=== PATIENT | female | born 1985 | race Caucasian/White ===

== ENCOUNTER 2016-08-26 00:11 | Emergency (ER) | payer OTHER ==
[~2016-08-26] VITALS: Ht 157.5 cm; Wt 86.0 kg
[~2016-08-26 00:11] MED LIST: AMITRIPTYLINE H10 MG PO; AMOXICILLIN500 MG PO; AMOXICILLIN875 MG PO; ANTIVERT25 MG PO; ATARAX,VISTARIL25 MG PO; BACLOFEN10 MG PO; BENTYL20 MG PO; BUTALB-APAP-CA1 EACH PO; COMPAZINE10 MG PO; CYMBALTA; CYMBALTA60 MG PO; ENDOCET 5-3251 EACH PO; FLONASE16 G1 BOTH NARES; HYDROCODON-ACE1 EAC7 PO; HYDROCODONE-CH473 ML PO; IBUPROFEN200 M1 PO; KLONOPIN; KLONOPIN2 MG PO; LEVOFLOXACIN750 MG PO; METRONIDAZOLE500 MG PO; MUCUS ER600 MG PO; NAPROSYN500 MG PO; NORCO 5/3251 TABLET PO; ONDANSETRON HCL4 MG PO; OXYCONTIN10 MG PO; PERCOCET; PERCOCET 5/31 TABLET PO; PREDNISONE10 MG PO; PROZAC; PROZAC40 MG PO; REQUIP; REQUIP0.5 MG PO; ROBITUSSIN NIG118 ML PO; TEGRETOL-XR,CA100 MG PO; TESSALON PERLE100 MG PO; TYLENOL REGULA325 MG PO; VALIUM5 MG PO; ZOFRAN ODT4 MG PO; ZOFRAN ODT8 MG PO; ZOFRAN4 MG PO; ZYRTEC10 M2 PO
[2016-08-26] MEDS ORDERED: VIBRAMYCIN100 MG PO (03:33)
[2016-08-26 03:52] VITALS: BP 132/87
== END 2016-08-26 03:53 | disposition home or self-care (01) ==
LOC: EME 00:11 → EXP 00:11
PROC: 0H98XZZ Drainage of Buttock Skin, External Approach (ICD-10-PCS; principal; 2016-08-26)
DX: L02.31 Cutaneous abscess of buttock (principal); L03.317 Cellulitis of buttock; I10 Essential (primary) hypertension; F17.200 Nicotine dependence, unspecified, uncomplicated
CPT/HCPCS: 87205; 99281; 99283; J3010

== ENCOUNTER 2016-09-25 23:47 | Emergency (ER) | payer OTHER ==
[~2016-09-25] VITALS: Ht 157.5 cm; Wt 87.1 kg
[~2016-09-25 23:47] MED LIST changes: +VIBRAMYCIN100 MG PO
[2016-09-26] MEDS ORDERED: REGLAN10 MG PO (02:15)
[2016-09-26] MEDS ORDERED: FIORICET,ESG1 TABLET PO (02:15)
[2016-09-26 02:38] VITALS: BP 131/84
== END 2016-09-26 02:40 | disposition home or self-care (01) ==
LOC: EME 23:47 → EXP 23:47
DX: G43.909 Migraine, unspecified, not intractable, without status migrainosus (principal); F17.200 Nicotine dependence, unspecified, uncomplicated; Z88.6 Allergy status to analgesic agent
CPT/HCPCS: 99281; 99284; J0595; J1110; J8540

== ENCOUNTER 2016-09-30 15:39 | Emergency (ER) | payer OTHER ==
[~2016-09-30] VITALS: Ht 157.5 cm; Wt 82.7 kg
[~2016-09-30 15:39] MED LIST changes: +FIORICET,ESG1 TABLET PO; +REGLAN10 MG PO
[2016-09-30 16:44] LABS: MCH 29.1 PG (29.0-34.0); MCV 88.3 FL (83-99); MEAN PLAT.VOLUME 10.5 uM^3 (9.5-12.4); PLATELET COUNT 273 K/uL (156-360); RBC DIS.WIDTH-SD 42.3 % (39-53); RED BLOOD COUNT 5.32 M/uL (3.80-5.20); WHITE BLOOD COUNT 12.3 K/uL (4.1-10.2)
[2016-09-30 16:51] LABS: AMPHETAMINE NEGATIVE (500 ng/mL); BARBITURATES NEGATIVE (200 ng/mL); BENZODIAZEPINES NEGATIVE (150 ng/mL); COCAINE NEGATIVE (150 ng/mL); INTERNAL CONTROLS VALID? YES; METHADONE NEGATIVE (200 ng/mL); METHAMPHETAMINE NEGATIVE (500 ng/mL); OPIATES (MORPHINE) NEGATIVE (100 ng/mL); OXYCODONE NEGATIVE (100 ng/mL); PHENCYCLIDINE NEGATIVE (25 ng/mL); PROPOXYPHENE NEGATIVE (300 ng/mL); THC CANNABINOIDS NEGATIVE (50 ng/mL); TRICYCLIC ANTIDEPRESSANTS NEGATIVE (300 ng/mL)
[2016-09-30 16:52] LABS: CHLORIDE 106 mEq/L (99-109); POTASSIUM 3.9 mEq/L (3.7-5.4); SODIUM 140 mEq/L (136-147)
[2016-09-30 16:53] LABS: GLUCOSE 94 mg/dL (70-99)
[2016-09-30 16:55] LABS: ANION GAP 8 MEQ/L (2-14)
[2016-09-30 16:57] LABS: GFR ESTIMATE (CALCULATED) > 59 mL/min/; SERUM ETHYL ALCOHOL < 10 mg/dL
[2016-09-30 16:59] LABS: UREA NITROGEN (BUN) 12 mg/dL (9-23)
[2016-09-30 17:01] LABS: SALICYLATE < 5.0 MG/DL (15-30)
[2016-09-30 17:41] VITALS: BP 111/68
== END 2016-09-30 17:49 | disposition home or self-care (01) ==
LOC: EME 15:39
PROVIDERS: Emergency Medicine
DX: F39 Unspecified mood [affective] disorder (principal); M25.512 Pain in left shoulder; G89.29 Other chronic pain; F32.9 Major depressive disorder, single episode, unspecified; M79.7 Fibromyalgia; G43.909 Migraine, unspecified, not intractable, without status migrainosus; F17.200 Nicotine dependence, unspecified, uncomplicated
CPT/HCPCS: 71010; 73030; 80048; 85027; 90837; 99281; 99285; G0480

== ENCOUNTER 2016-10-10 04:05 | Emergency (ER) | payer OTHER ==
[~2016-10-10] VITALS: Ht 157.5 cm; Wt 86.3 kg
[2016-10-10 04:07] VITALS: BP 125/88
== END 2016-10-10 04:58 | disposition left against medical advice (07) ==
LOC: EME 04:05
DX: M79.605 Pain in left leg (principal); Z53.21 Procedure and treatment not carried out due to patient leaving prior to being seen by health care provider

== ENCOUNTER 2016-10-28 16:21 | Emergency (ER) | payer OTHER ==
[~2016-10-28] VITALS: Ht 157.5 cm; Wt 85.3 kg
[2016-10-28] MEDS ORDERED: MECLIZINE HCL25 MG PO (18:28)
[2016-10-28] MEDS ORDERED: SUDAFED 12-HOU120 MG PO (18:28)
[2016-10-28 18:49] VITALS: BP 111/65
== END 2016-10-28 18:49 | disposition home or self-care (01) ==
LOC: EME 16:21
DX: J01.90 Acute sinusitis, unspecified (principal); R42 Dizziness and giddiness; M79.7 Fibromyalgia; F17.200 Nicotine dependence, unspecified, uncomplicated
CPT/HCPCS: 99281; 99284

== ENCOUNTER 2016-12-06 02:03 | Emergency (ER) | payer OTHER ==
[~2016-12-06] VITALS: Ht 157.5 cm; Wt 86.9 kg
[~2016-12-06 02:03] MED LIST changes: +MECLIZINE HCL25 MG PO; +SUDAFED 12-HOU120 MG PO
[2016-12-06] MEDS ORDERED: PERCOCET 5/31 TABLET PO (02:15)
[2016-12-06 02:31] VITALS: BP 145/90
== END 2016-12-06 02:31 | disposition home or self-care (01) ==
LOC: EME 02:03
DX: M54.41 Lumbago with sciatica, right side (principal); F17.200 Nicotine dependence, unspecified, uncomplicated
CPT/HCPCS: 99281; 99283; J1100

== ENCOUNTER 2016-12-24 01:45 | Emergency (ER) | payer OTHER ==
[~2016-12-24] VITALS: Ht 157.5 cm; Wt 86.6 kg
[2016-12-24 02:11] VITALS: BP 118/94
[2016-12-24 02:43] LABS: HEMATOCRIT 43.7 % (36.0-46.0); MCH 29.1 PG (29.0-34.0); MCV 88.3 FL (83-99); MEAN PLAT.VOLUME 10.4 uM^3 (9.5-12.4); PLATELET COUNT 262 K/uL (156-360); RBC DIS.WIDTH-CV 12.6 % (11.8-14.6); RBC DIS.WIDTH-SD 40.6 % (39-53); RED BLOOD COUNT 4.95 M/uL (3.80-5.20); WHITE BLOOD COUNT 10.2 K/uL (4.1-10.2)
[2016-12-24 02:53] LABS: CHLORIDE 108 mEq/L (99-109); POTASSIUM 3.9 mEq/L (3.7-5.4); SODIUM 141 mEq/L (136-147)
[2016-12-24 02:55] LABS: GLUCOSE 101 mg/dL (70-99)
[2016-12-24 02:56] LABS: ANION GAP 10 MEQ/L (2-14)
[2016-12-24 02:57] LABS: TOTAL BILIRUBIN 0.2 mg/dL (0.0-1.0)
[2016-12-24 02:58] LABS: ALKALINE PHOSPHATASE 77 IU/L (3-129)
[2016-12-24 02:59] LABS: GFR ESTIMATE (CALCULATED) > 59 mL/min/
[2016-12-24 03:00] LABS: UREA NITROGEN (BUN) 11 mg/dL (9-23)
[2016-12-24 03:07] LABS: QUANTITATIVE HCG < 4.0 MIU/ML
== END 2016-12-24 04:40 | disposition left against medical advice (07) ==
LOC: EME 01:45
DX: R10.9 Unspecified abdominal pain (principal); R11.10 Vomiting, unspecified; Z53.21 Procedure and treatment not carried out due to patient leaving prior to being seen by health care provider
CPT/HCPCS: 80053; 81003; 84702; 85027

== ENCOUNTER 2017-01-21 05:49 | Emergency (ER) | payer OTHER ==
[~2017-01-21] VITALS: Ht 157.5 cm; Wt 88.0 kg
[2017-01-21 06:18] LABS: HEMATOCRIT 42.4 % (36.0-46.0); MCH 29.5 PG (29.0-34.0); MCHC 33.5 G/DL (30.0-36.0); MEAN PLAT.VOLUME 10.5 uM^3 (9.5-12.4); PLATELET COUNT 241 K/uL (156-360); RBC DIS.WIDTH-CV 12.7 % (11.8-14.6); RBC DIS.WIDTH-SD 41.1 % (39-53); RED BLOOD COUNT 4.82 M/uL (3.80-5.20); WHITE BLOOD COUNT 11.5 K/uL (4.1-10.2)
[2017-01-21 06:21] LABS: ADD MIUA? YES; BILIRUBIN NEGATIVE; BLOOD NEGATIVE; COLOR YELLOW ((YELLOW)); GLUCOSE (STRIP) NEGATIVE; KETONES NEGATIVE; LEUKOCYTES SMALL; NITRITE NEGATIVE; PROTEIN (STRIP) 30; UROBILINOGEN 0.2 MG/DL (0.2-1.0)
[2017-01-21 06:29] LABS: CHLORIDE 104 mEq/L (99-109); POTASSIUM 3.9 mEq/L (3.7-5.4); SODIUM 139 mEq/L (136-147)
[2017-01-21 06:31] LABS: GLUCOSE 94 mg/dL (70-99)
[2017-01-21 06:33] LABS: ANION GAP 13 MEQ/L (2-14); TOTAL BILIRUBIN 0.3 mg/dL (0.0-1.0)
[2017-01-21 06:35] LABS: ALKALINE PHOSPHATASE 71 IU/L (3-129); GFR ESTIMATE (CALCULATED) > 59 mL/min/
[2017-01-21 06:36] LABS: UREA NITROGEN (BUN) 11 mg/dL (9-23)
[2017-01-21 06:42] LABS: EPITHELIAL CELLS 3+ /HPF; MUCUS 1+ /LPF; RED BLOOD CELLS NONE SEEN /HPF (0-5)
[2017-01-21 06:43] LABS: BACTERIA 3+ /HPF; CASTS NONE SEEN /LPF; CRYSTALS NONE SEEN
[2017-01-21 06:44] LABS: QUANTITATIVE HCG < 4.0 MIU/ML
[2017-01-21] MEDS ORDERED: ZOFRAN ODT4 MG PO (06:52)
[2017-01-21] MEDS ORDERED: CIPRO500 MG PO (06:52)
[2017-01-21 07:01] VITALS: BP 106/56
== END 2017-01-21 07:04 | disposition home or self-care (01) ==
LOC: EME 05:49
PROVIDERS: Nurse Practitioner Family
DX: N39.0 Urinary tract infection, site not specified (principal); R11.0 Nausea; M79.7 Fibromyalgia; F17.200 Nicotine dependence, unspecified, uncomplicated
CPT/HCPCS: 80053; 81003; 84702; 85027; 99281; 99283

== ENCOUNTER 2017-01-30 07:55 | Emergency (ER) | payer OTHER ==
[~2017-01-30] VITALS: Ht 157.5 cm; Wt 85.8 kg
[~2017-01-30 07:55] MED LIST changes: +CIPRO500 MG PO
[2017-01-30] MEDS ORDERED: FLEXERIL10 MG PO (08:59)
[2017-01-30] MEDS ORDERED: [UNRECOGNIZED DRUG - OTHER] TP (09:12)
[2017-01-30 09:48] VITALS: BP 124/92
== END 2017-01-30 09:59 | disposition home or self-care (01) ==
LOC: EME 07:55
DX: S13.4XXA Sprain of ligaments of cervical spine, initial encounter (principal); V40.5XXA Car driver injured in collision with pedestrian or animal in traffic accident, initial encounter; M79.7 Fibromyalgia; Z88.8 Allergy status to other drugs, medicaments and biological substances; F17.200 Nicotine dependence, unspecified, uncomplicated
CPT/HCPCS: 72040; 99281; 99284

== ENCOUNTER 2017-02-03 02:43 | Emergency (ER) | payer OTHER ==
[~2017-02-03] VITALS: Ht 157.5 cm; Wt 89.4 kg
[~2017-02-03 02:43] MED LIST changes: +FLEXERIL10 MG PO; +[UNRECOGNIZED DRUG - OTHER] TP
[2017-02-03] MEDS ORDERED: PREDNISONE20 MG PO (04:19)
[2017-02-03 05:40] VITALS: BP 117/60
== END 2017-02-03 05:41 | disposition home or self-care (01) ==
LOC: EME 02:43
DX: T78.40XA Allergy, unspecified, initial encounter (principal); M79.7 Fibromyalgia; F17.200 Nicotine dependence, unspecified, uncomplicated; Z88.8 Allergy status to other drugs, medicaments and biological substances
CPT/HCPCS: 94640; 99281; 99285; J1200; J2930; J7030; S0028

== ENCOUNTER 2017-02-28 11:49 | Emergency (ER) | payer OTHER ==
[~2017-02-28 11:49] MED LIST changes: +PREDNISONE20 MG PO
[2017-02-28] MEDS ORDERED: INDERAL40 MG PO (18:09)
[2017-02-28] MEDS ORDERED: KLONOPIN0.5 M1 PO (18:09)
[2017-02-28] MEDS ORDERED: LEXAPRO20 MG PO (18:09)
[2017-02-28] MEDS ORDERED: ZOFRAN ODT4 MG PO (20:38)
[2017-02-28] MEDS ORDERED: DILAUDID2 MG PO (20:38)
== END 2017-02-28 12:56 | disposition left against medical advice (07) ==
LOC: EME 11:49
DX: N63.0 Unspecified lump in unspecified breast (principal); Z98.890 Other specified postprocedural states; Z53.21 Procedure and treatment not carried out due to patient leaving prior to being seen by health care provider

== ENCOUNTER 2017-02-28 17:29 | Emergency (ER) | payer OTHER ==
[~2017-02-28] VITALS: Ht 157.5 cm; Wt 87.7 kg
[2017-02-28] MEDS ORDERED: LEXAPRO20 MG PO (18:09)
[2017-02-28] MEDS ORDERED: KLONOPIN0.5 M1 PO (18:09)
[2017-02-28] MEDS ORDERED: INDERAL40 MG PO (18:09)
[2017-02-28 18:24] LABS: HEMATOCRIT 39.8 % (36.0-46.0); MCH 29.5 PG (29.0-34.0); MCHC 33.7 G/DL (30.0-36.0); MCV 87.5 FL (83-99); MEAN PLAT.VOLUME 10.1 uM^3 (9.5-12.4); PLATELET COUNT 339 K/uL (156-360); RBC DIS.WIDTH-CV 12.7 % (11.8-14.6); RBC DIS.WIDTH-SD 40.2 % (39-53); RED BLOOD COUNT 4.55 M/uL (3.80-5.20); WHITE BLOOD COUNT 12.4 K/uL (4.1-10.2)
[2017-02-28 18:31] LABS: CHLORIDE 105 mEq/L (99-109); POTASSIUM 3.9 mEq/L (3.7-5.4); SODIUM 138 mEq/L (136-147)
[2017-02-28 18:33] LABS: GLUCOSE 93 mg/dL (70-99)
[2017-02-28 18:34] LABS: ANION GAP 9 MEQ/L (2-14)
[2017-02-28 18:37] LABS: GFR ESTIMATE (CALCULATED) > 59 mL/min/
[2017-02-28 18:38] LABS: UREA NITROGEN (BUN) 10 mg/dL (9-23)
[2017-02-28] MEDS ORDERED: DILAUDID2 MG PO (20:38)
[2017-02-28] MEDS ORDERED: ZOFRAN ODT4 MG PO (20:38)
[2017-02-28 20:48] VITALS: BP 138/83
== END 2017-02-28 19:48 | disposition home or self-care (01) ==
LOC: EME 17:29
PROVIDERS: Nurse Practitioner Family
DX: L76.32 Postprocedural hematoma of skin and subcutaneous tissue following other procedure (principal); N64.4 Mastodynia; N63.10 Unspecified lump in the right breast, unspecified quadrant; Z98.890 Other specified postprocedural states; F17.200 Nicotine dependence, unspecified, uncomplicated
CPT/HCPCS: 71260; 80048; 85027; 99281; 99285; J2405; J3010; J7030

== ENCOUNTER 2017-04-13 00:54 | Emergency (ER) | payer OTHER ==
[~2017-04-13] VITALS: Ht 157.5 cm; Wt 92.4 kg
[~2017-04-13 00:54] MED LIST changes: +DILAUDID2 MG PO; +INDERAL40 MG PO; +KLONOPIN0.5 M1 PO; +LEXAPRO20 MG PO
[2017-04-13] MEDS ORDERED: FLEXERIL10 MG PO (03:03)
[2017-04-13 03:28] VITALS: BP 129/84
== END 2017-04-13 03:28 | disposition home or self-care (01) ==
LOC: EME 00:54
DX: M54.32 Sciatica, left side (principal); Z88.5 Allergy status to narcotic agent; Z88.6 Allergy status to analgesic agent; Z88.8 Allergy status to other drugs, medicaments and biological substances
CPT/HCPCS: 99281; 99284

== ENCOUNTER 2017-05-21 20:33 | Emergency (ER) | payer OTHER ==
[~2017-05-21] VITALS: Ht 154.9 cm; Wt 88.6 kg
[2017-05-21 21:14] LABS: HEMOGLOBIN 14.9 G/DL (11.9-15.5); MCH 28.8 PG (29.0-34.0); MCHC 33.9 G/DL (30.0-36.0); MCV 84.9 FL (83-99); PLATELET COUNT 290 K/uL (156-360); RBC DIS.WIDTH-CV 12.4 % (11.8-14.6); RBC DIS.WIDTH-SD 38.4 % (39-53); RED BLOOD COUNT 5.18 M/uL (3.80-5.20); WHITE BLOOD COUNT 9.8 K/uL (4.1-10.2)
[2017-05-21 21:30] LABS: CHLORIDE 105 MEQ/L (99-109); POTASSIUM 3.4 MEQ/L (3.7-5.4); SODIUM 136 MEQ/L (136-147)
[2017-05-21 21:35] LABS: CREATININE 0.7 MG/DL (0.6-1.3); GFR ESTIMATE (CALCULATED) > 59 mL/min/; GLUCOSE 153 mg/dL (70-99); UREA NITROGEN (BUN) 14 mg/dL (9-23)
[2017-05-22 00:09] LABS: TROP-I INTERPRETATION NEGATIVE; TROPONIN-I < 0.01 ng/mL (0.0-0.30)
[2017-05-22 01:15] VITALS: BP 131/75
== END 2017-05-22 01:17 | disposition home or self-care (01) ==
LOC: EXP 20:33 → EME 20:33 → EXP 05-22 01:17
PROVIDERS: Nurse Practitioner Family
DX: R07.9 Chest pain, unspecified (principal); M79.7 Fibromyalgia; Z87.891 Personal history of nicotine dependence; Z88.5 Allergy status to narcotic agent; Z88.6 Allergy status to analgesic agent; Z88.8 Allergy status to other drugs, medicaments and biological substances
CPT/HCPCS: 71046; 71275; 80048; 84484; 85027; 87502; 93005; 99281; 99285; J7030

== ENCOUNTER 2017-05-25 13:09 | Emergency (ER) | payer OTHER ==
[~2017-05-25] VITALS: Ht 154.9 cm; Wt 87.2 kg
[2017-05-25 13:53] LABS: HEMATOCRIT 44.7 % (36.0-46.0); MCHC 33.6 G/DL (30.0-36.0); MCV 86.5 FL (83-99); PLATELET COUNT 278 K/uL (156-360); RBC DIS.WIDTH-CV 12.5 % (11.8-14.6); RBC DIS.WIDTH-SD 39.4 % (39-53); RED BLOOD COUNT 5.17 M/uL (3.80-5.20); WHITE BLOOD COUNT 8.6 K/uL (4.1-10.2)
[2017-05-25 14:13] LABS: CHLORIDE 106 MEQ/L (99-109); POTASSIUM 3.9 MEQ/L (3.7-5.4); SODIUM 138 MEQ/L (136-147)
[2017-05-25 14:20] LABS: CREATININE 0.6 MG/DL (0.6-1.3); GFR ESTIMATE (CALCULATED) > 59 mL/min/; GLUCOSE 101 mg/dL (70-99); TROP-I INTERPRETATION NEGATIVE; TROPONIN-I < 0.01 ng/mL (0.0-0.30); UREA NITROGEN (BUN) 13 mg/dL (9-23)
[2017-05-25 15:17] LABS: QUANTITATIVE HCG < 4.0 MIU/ML
[2017-05-25 15:58] LABS: APPEARANCE CLOUDY ((CLEAR)); BILIRUBIN NEGATIVE; BLOOD LARGE; COLOR YELLOW ((YELLOW)); GLUCOSE (STRIP) NEGATIVE; KETONES NEGATIVE; LEUKOCYTES TRACE; NITRITE NEGATIVE; PROTEIN (STRIP) 30; SPECIFIC GRAVITY 1.021 (1.000-1.030); UROBILINOGEN 0.2 MG/DL (0.2-1.0)
[2017-05-25 16:11] LABS: EPITHELIAL CELLS 2+ /HPF; RED BLOOD CELLS 40-50 /HPF (0-5)
[2017-05-25 16:12] LABS: BACTERIA 3+ /HPF; MUCUS RARE /LPF; UCUL ADDED? YES
[2017-05-25] MEDS ORDERED: VENTOLIN HFA18 GM IH (16:16)
[2017-05-25 16:23] VITALS: BP 101/65
== END 2017-05-25 16:24 | disposition home or self-care (01) ==
LOC: EME 13:09
PROVIDERS: Physician Assistant
DX: R06.02 Shortness of breath (principal); M79.7 Fibromyalgia; G43.909 Migraine, unspecified, not intractable, without status migrainosus; Z88.8 Allergy status to other drugs, medicaments and biological substances; Z88.5 Allergy status to narcotic agent; Z88.6 Allergy status to analgesic agent; F17.200 Nicotine dependence, unspecified, uncomplicated
CPT/HCPCS: 71046; 80048; 81003; 81025; 84484; 84702; 85027; 87086; 93005; 99281; 99284

== ENCOUNTER 2017-06-10 22:23 | Emergency (ER) | payer OTHER ==
[~2017-06-10] VITALS: Ht 157.5 cm; Wt 93.1 kg
[~2017-06-10 22:23] MED LIST changes: +VENTOLIN HFA18 GM IH
[2017-06-10 22:32] VITALS: BP 134/91
[2017-06-10 23:26] LABS: HEMOGLOBIN 14.9 G/DL (11.9-15.5); MCH 28.9 PG (29.0-34.0); MCHC 33.9 G/DL (30.0-36.0); MCV 85.4 FL (83-99); PLATELET COUNT 291 K/uL (156-360); RBC DIS.WIDTH-CV 12.5 % (11.8-14.6); RBC DIS.WIDTH-SD 38.5 % (39-53); RED BLOOD COUNT 5.15 M/uL (3.80-5.20); WHITE BLOOD COUNT 11.9 K/uL (4.1-10.2)
[2017-06-10 23:34] LABS: D-DIMER ELISA < 150.00 ng/mLDDU (<230)
[2017-06-10 23:38] LABS: CHLORIDE 101 mEq/L (99-109); POTASSIUM 3.3 mEq/L (3.7-5.4); SODIUM 140 mEq/L (136-147)
[2017-06-10 23:40] LABS: GLUCOSE 152 mg/dL (70-99)
[2017-06-10 23:44] LABS: CREATININE 0.8 mg/dL (0.6-1.3); GFR ESTIMATE (CALCULATED) > 59 mL/min/
[2017-06-10 23:45] LABS: UREA NITROGEN (BUN) 11 mg/dL (9-23)
[2017-06-10 23:48] LABS: TROP-I INTERPRETATION NEGATIVE; TROPONIN-I < 0.01 ng/mL (0.0-0.30)
== END 2017-06-11 02:21 | disposition left against medical advice (07) ==
LOC: EME 22:23
PROVIDERS: Emergency Medicine
DX: N64.4 Mastodynia (principal); Z53.21 Procedure and treatment not carried out due to patient leaving prior to being seen by health care provider
CPT/HCPCS: 71046; 80048; 84484; 85027; 85379; 93005

== ENCOUNTER 2017-06-25 22:53 | Emergency (ER) | payer OTHER ==
[~2017-06-25] VITALS: Ht 157.5 cm; Wt 94.6 kg
[2017-06-26 00:36] LABS: HEMATOCRIT 42.4 % (36.0-46.0); HEMOGLOBIN 14.6 G/DL (11.9-15.5); MCH 29.5 PG (29.0-34.0); MCHC 34.4 G/DL (30.0-36.0); MCV 85.7 FL (83-99); PLATELET COUNT 289 K/uL (156-360); RBC DIS.WIDTH-CV 12.9 % (11.8-14.6); RBC DIS.WIDTH-SD 39.8 % (39-53); RED BLOOD COUNT 4.95 M/uL (3.80-5.20); WHITE BLOOD COUNT 10.8 K/uL (4.1-10.2)
[2017-06-26 00:49] LABS: CHLORIDE 105 mEq/L (99-109); POTASSIUM 3.5 mEq/L (3.7-5.4); SODIUM 140 mEq/L (136-147)
[2017-06-26 00:51] LABS: GLUCOSE 172 mg/dL (70-99)
[2017-06-26 00:52] LABS: TOTAL PROTEIN 8.3 g/dL (6.4-8.3)
[2017-06-26 00:53] LABS: TOTAL BILIRUBIN 0.2 mg/dL (0.0-1.0)
[2017-06-26 00:55] LABS: ALKALINE PHOSPHATASE 73 IU/L (3-129); CREATININE 0.8 mg/dL (0.6-1.3); GFR ESTIMATE (CALCULATED) > 59 mL/min/
[2017-06-26 00:56] LABS: UREA NITROGEN (BUN) 10 mg/dL (9-23)
[2017-06-26 00:57] LABS: AST (GOT) 21 IU/L (2-34)
[2017-06-26 00:58] LABS: ALT (GPT) 24 IU/L (3-49)
[2017-06-26 00:59] LABS: LIPASE 37 U/L (1.0-51.0)
[2017-06-26 03:20] VITALS: BP 97/56
== END 2017-06-26 03:40 | disposition home or self-care (01) ==
LOC: EME 22:53
PROVIDERS: Emergency Medicine
DX: T78.40XA Allergy, unspecified, initial encounter (principal); M79.7 Fibromyalgia; G43.909 Migraine, unspecified, not intractable, without status migrainosus; Z87.891 Personal history of nicotine dependence
CPT/HCPCS: 71046; 80053; 83690; 85027; 94640; 99281; 99285; J1200; J7030; J7644; S0028

== ENCOUNTER 2017-09-30 04:40 | Emergency (ER) | payer OTHER ==
[~2017-09-30] VITALS: Ht 157.5 cm; Wt 93.6 kg
[2017-09-30] MEDS ORDERED: DILAUDID2 MG PO (06:07)
[2017-09-30 06:16] VITALS: BP 110/82
== END 2017-09-30 06:17 | disposition home or self-care (01) ==
LOC: EME 04:40
DX: G89.29 Other chronic pain (principal); M79.7 Fibromyalgia; Z88.5 Allergy status to narcotic agent; Z88.6 Allergy status to analgesic agent; F17.200 Nicotine dependence, unspecified, uncomplicated
CPT/HCPCS: 99281; 99284

== ENCOUNTER 2017-10-17 18:53 | Emergency (ER) | payer OTHER ==
[~2017-10-17] VITALS: Ht 157.5 cm; Wt 92.8 kg
[2017-10-17 19:21] LABS: HEMATOCRIT 43.2 % (36.0-46.0); HEMOGLOBIN 14.3 G/DL (11.9-15.5); MCH 29.2 PG (29.0-34.0); MCHC 33.1 G/DL (30.0-36.0); MCV 88.2 FL (83-99); PLATELET COUNT 282 K/uL (156-360); RBC DIS.WIDTH-CV 13.2 % (11.8-14.6); RBC DIS.WIDTH-SD 42.7 % (39-53); WHITE BLOOD COUNT 11.3 K/uL (4.1-10.2)
[2017-10-17 19:33] LABS: ALBUMIN 4.3 g/dL (3.2-4.8); CHLORIDE 107 mEq/L (99-109); POTASSIUM 4.4 mEq/L (3.7-5.4); SODIUM 139 mEq/L (136-147)
[2017-10-17 19:35] LABS: GLUCOSE 136 mg/dL (70-99)
[2017-10-17 19:37] LABS: TOTAL BILIRUBIN 0.2 mg/dL (0.0-1.0)
[2017-10-17 19:39] LABS: ALKALINE PHOSPHATASE 99 IU/L (3-129); CREATININE 0.7 mg/dL (0.6-1.3); GFR ESTIMATE (CALCULATED) > 59 mL/min/
[2017-10-17 19:40] LABS: UREA NITROGEN (BUN) 8 mg/dL (9-23)
[2017-10-17 19:41] LABS: AST (GOT) 25 IU/L (2-34)
[2017-10-17 19:42] LABS: ALT (GPT) 61 IU/L (3-49); LIPASE 32 U/L (1.0-51.0)
[2017-10-17 19:48] LABS: QUANTITATIVE HCG 298.9 MIU/ML
[2017-10-17 21:10] LABS: APPEARANCE SL.HAZY ((CLEAR)); BILIRUBIN NEGATIVE; BLOOD SMALL; COLOR YELLOW ((YELLOW)); GLUCOSE (STRIP) NEGATIVE; KETONES NEGATIVE; LEUKOCYTES TRACE; NITRITE NEGATIVE; PROTEIN (STRIP) NEGATIVE; UROBILINOGEN 0.2 MG/DL (0.2-1.0)
[2017-10-17 21:17] LABS: BACTERIA RARE /HPF; EPITHELIAL CELLS 2+ /HPF; MUCUS TRACE /LPF; RED BLOOD CELLS 0-5 /HPF (0-5); UCUL ADDED? NO; WHITE BLOOD CELLS 0-5 /HPF (0-5)
[2017-10-17 23:20] VITALS: BP 98/79
== END 2017-10-17 23:34 | disposition home or self-care (01) ==
LOC: EME 18:53
DX: O20.0 Threatened abortion (principal); O99.341 Other mental disorders complicating pregnancy, first trimester; F41.9 Anxiety disorder, unspecified; Z3A.00 Weeks of gestation of pregnancy not specified; M79.7 Fibromyalgia; Z87.891 Personal history of nicotine dependence; Z90.49 Acquired absence of other specified parts of digestive tract; Z88.5 Allergy status to narcotic agent; Z88.6 Allergy status to analgesic agent; Z88.8 Allergy status to other drugs, medicaments and biological substances
CPT/HCPCS: 76801; 80053; 81003; 83690; 84702; 85027; 99281; 99284; Q0177

== ENCOUNTER 2017-11-27 08:05 | Emergency (ER) | payer OTHER ==
[~2017-11-27] VITALS: Ht 157.5 cm; Wt 92.4 kg
[2017-11-27 08:47] LABS: BASOPHIL (%) 0.3 % (0-1); EOSINOPHIL (%) 0.5 % (0-5); EOSINOPHIL COUNT 0.1 K/uL (0-0.3); HEMATOCRIT 39.8 % (36.0-46.0); HEMOGLOBIN 13.4 G/DL (11.9-15.5); IMMATURE GRANULOCYTE (%) 0.3 % (0.0-0.7); LYMPHOCYTE (%) 36.1 % (15-42); LYMPHOCYTE COUNT 3.6 K/uL (1.0-2.8); MCH 28.7 PG (29.0-34.0); MCHC 33.7 G/DL (30.0-36.0); MCV 85.2 FL (83-99); MONOCYTE (%) 5.8 % (3-12); MONOCYTE COUNT 0.6 K/uL (0-0.8); NEUTROPHIL COUNT 5.7 K/uL (1.8-6.4); PLATELET COUNT 272 K/uL (156-360); RBC DIS.WIDTH-CV 12.9 % (11.8-14.6); RBC DIS.WIDTH-SD 39.9 % (39-53); RED BLOOD COUNT 4.67 M/uL (3.80-5.20)
[2017-11-27 08:59] LABS: ALBUMIN 4.2 g/dL (3.2-4.8); CHLORIDE 107 mEq/L (99-109); POTASSIUM 3.7 mEq/L (3.7-5.4); SODIUM 138 mEq/L (136-147)
[2017-11-27 09:01] LABS: GLUCOSE 105 mg/dL (70-99); TOTAL PROTEIN 7.8 g/dL (6.4-8.3)
[2017-11-27 09:03] LABS: TOTAL BILIRUBIN 0.3 mg/dL (0.0-1.0)
[2017-11-27 09:05] LABS: ALKALINE PHOSPHATASE 64 IU/L (3-129); CREATININE 0.7 mg/dL (0.6-1.3); GFR ESTIMATE (CALCULATED) > 59 mL/min/
[2017-11-27 09:06] LABS: UREA NITROGEN (BUN) 7 mg/dL (9-23)
[2017-11-27 09:07] LABS: AST (GOT) 14 IU/L (2-34)
[2017-11-27 09:08] LABS: ALT (GPT) 17 IU/L (3-49)
[2017-11-27 09:32] LABS: QUANTITATIVE HCG 29161.1 MIU/ML
[2017-11-27 09:46] LABS: APPEARANCE SL.HAZY ((CLEAR)); BILIRUBIN NEGATIVE; BLOOD MODERATE; COLOR YELLOW ((YELLOW)); GLUCOSE (STRIP) NEGATIVE; KETONES NEGATIVE; LEUKOCYTES TRACE; NITRITE NEGATIVE; PROTEIN (STRIP) 30; SPECIFIC GRAVITY 1.019 (1.000-1.030); UROBILINOGEN 0.2 MG/DL (0.2-1.0)
[2017-11-27 09:59] LABS: BACTERIA RARE /HPF; EPITHELIAL CELLS 1+ /HPF; MUCUS TRACE /LPF; RED BLOOD CELLS 20-30 /HPF (0-5); URIC ACID CRYSTALS 2+ /HPF; WHITE BLOOD CELLS 0-5 /HPF (0-5)
[2017-11-27] MEDS ORDERED: NAPROSYN500 MG PO (11:29)
[2017-11-27 12:24] VITALS: BP 126/83
== END 2017-11-27 12:37 | disposition home or self-care (01) ==
LOC: EME 08:05
PROVIDERS: Nurse Practitioner Family
DX: O02.0 Blighted ovum and nonhydatidiform mole (principal); O21.9 Vomiting of pregnancy, unspecified; Z3A.01 Less than 8 weeks gestation of pregnancy; Z90.49 Acquired absence of other specified parts of digestive tract; Z87.891 Personal history of nicotine dependence
CPT/HCPCS: 76801; 80053; 81003; 84702; 85025; 99281; 99284; J2405; J7030